=== PATIENT | female | born 1990 | race Caucasian/White ===

== ENCOUNTER 2019-11-23 23:09 | Emergency (ER) | payer MEDICAID ==
[~2019-11-23] VITALS: Ht 154.9 cm; Wt 88.5 kg
[2019-11-23] MEDS ORDERED: [UNRECOGNIZED DRUG - CODE] PO (23:21)
[2019-11-23] MEDS ORDERED: [UNRECOGNIZED DRUG - REMARK] (23:21)
[2019-11-23] MEDS ORDERED: DEXT30SU17 PO (23:21)
[2019-11-23] MEDS ORDERED: CETI-110 PO (23:21)
[2019-11-23] MEDS ORDERED: predniSONE 20 MG TABLET PO ONE (23:45)
[2019-11-23] MEDS ORDERED: predniSONE 20 MG TABLET ONE (23:45)
[2019-11-23] MEDS ORDERED: PANTOPRAZOLE SODIUM 40 MG TABLET.DR PO ONE ×2 (23:45)
[2019-11-23] MEDS ORDERED: ONDANSETRON 4 MG/2 ML VIAL IM ONE (23:45)
[2019-11-23] MEDS ORDERED: ONDANSETRON 4 MG/2 ML VIAL ONE (23:47)
[2019-11-24 00:10] LABS: BASOPHILS % (AUTO) 0.2 % (0.0-2.0); EOSINOPHILS % (AUTO) 0.7 % (0.0-7.0); HEMATOCRIT 37.6 % (31.2-41.9); HEMOGLOBIN 11.8 g/dL (10.9-14.3); LYMPHOCYTES # (AUTO) 0.8 K/uL (20.0-40.0); LYMPHOCYTES % (AUTO) 13.4 % (20.5-51.5); MEAN CORPUSCULAR HEMOGLOBIN 22.5 uug (24.7-32.8); MEAN CORPUSCULAR HGB CONC 31 g/dL (32.3-35.6); MEAN CORPUSCULAR VOLUME 71.7 fL (75.5-95.3); MONOCYTES # (AUTO) 0.4 K/uL (2.0-10.0); NEUTROPHILS # (AUTO) 4.8 K/uL (1.8-8.9); NEUTROPHILS % (AUTO) 79.7 % (38.5-71.5); PLATELET COUNT (AUTO) 331 K/uL (179-408); RED BLOOD CELL COUNT(AUTO) 5.25 MIL/uL (3.63-4.92)
[2019-11-24 00:23] LABS: POTASSIUM 3.6 mmol/L (3.5-5.1)
[2019-11-24 00:24] LABS: CREATININE 0.9 mg/dL (0.6-1.3)
[2019-11-24 00:29] LABS: BILIRUBIN,TOTAL 0.3 mg/dL (0.2-1.0)
[2019-11-24] MEDS ORDERED: AZITHROMYCIN 250 MG TABLET ONE (00:42)
[2019-11-24] MEDS ORDERED: AZITHROMYCIN 250 MG TABLET PO ONE (00:45)
--- NOTE | 2019-11-24 00:57 | NUR ---
Patient discharged to home in stable conditon. Written and verbal after care instructions given. Patient verbalizes understanding of instructions. Pt walked out of ER in stable gait with mother. Pt appears in no distress. Vital signs stable. Respirations even + unlabored.
[2019-11-24 00:58] VITALS: BP 121/77
[2019-11-24 01:07] LABS: BAND % (MANUAL) 10 % (0-10); EOSINOPHILS % (MANUAL) 1 % (0-8); LYMPHOCYTES % (MANUAL) 12 % (20-40); METAMYELOCYTES % 1 % (0-1); NEUTROPHILS % (MANUAL) 75 % (42-75)
== END 2019-11-24 00:59 | disposition home or self-care (01) ==
LOC: ER 23:13
DX: B34.9 Viral infection, unspecified (principal); J18.9 Pneumonia, unspecified organism; G47.00 Insomnia, unspecified; K21.9 Gastro-esophageal reflux disease without esophagitis; Z79.2 Long term (current) use of antibiotics; Z79.899 Other long term (current) drug therapy
CPT/HCPCS: 36415; 71045; 80053; 85007; 85025; 87400; 96372; 99284; J2405; J7512; 70030-TC; A4663; Q0144